=== PATIENT | male | born 2000 | race American Indian/Alaskan Native ===

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

== ENCOUNTER 2024-03-13 17:12 | Emergency (ER) | payer OTHER ==
[~2024-03-13] VITALS: Ht 172.7 cm; Wt 83.0 kg
[~2024-03-13 17:12] MED LIST: HYDROCODON-ACE1 EA10 PO; IBUPROFEN600 MG PO; MAPAP325 MG PO
[2024-03-13 18:54] VITALS: BP 110/63
== END 2024-03-13 18:54 | disposition home or self-care (01) ==
LOC: ED 17:12
DX: S51.811A Laceration without foreign body of right forearm, initial encounter (principal); W26.8XXA Contact with other sharp object(s), not elsewhere classified, initial encounter; Y93.G1 Activity, food preparation and clean up
CPT/HCPCS: 12002; 99282-25

== ENCOUNTER 2024-10-14 03:14 | Emergency (ER) | payer OTHER ==
[~2024-10-14] VITALS: Ht 170.2 cm; Wt 89.0 kg
[2024-10-14 03:34] VITALS: BP 149/82
== END 2024-10-14 03:34 | disposition home or self-care (01) ==
LOC: ED 03:14
DX: T23.102A Burn of first degree of left hand, unspecified site, initial encounter (principal); X08.8XXA Exposure to other specified smoke, fire and flames, initial encounter
CPT/HCPCS: 99283